=== PATIENT | female | born 2000 | race Caucasian/White ===

== ENCOUNTER 2019-10-31 08:57 | Day surgery (SDC) | payer OTHER ==
[~2019-10-31] VITALS: Ht 167.6 cm; Wt 65.8 kg
[2019-10-31] MEDS ORDERED: IRON325 M1 PO ×2 (09:20)
[2019-10-31] MEDS ORDERED: METFORMIN HCL500 MG PO ×2 (09:20)
--- NOTE | 2019-10-31 11:34 | NUR ---
10/31/19 1134 Sheets,Swati 1112 PT ARRIVED TO PACU ON 6L VIA MASK, VSS. PT REACTIVE TO TACTILE STIMULI. 1120 MD AT BEDSIDE AND O2 GLORIA REMOVED. PT RPEORTS PAIN 3/10 AND TOLERABLE. PT ASKING FOR WATER. 1130 PT SIPPING WATER AND PLAN OF CARE DISCUSSED. PT DENIES NAUSEA.
--- NOTE | 2019-10-31 11:46 | NUR ---
PATIENT BACK IN DAY SURGERY ROOM FROM PACU. PATIENT SLIGHTLY DROWSY. C/O PAIN 5/10. GIVEN ICE WATER AND PUDDING. WILL MEDICATE PATIENT ONCE SHE IS ABLE TO EAT A FEW BITES OF PUDDING. VS CHECKED. IV SITE WNL. SCDs ON. CALL LIGHT WITHIN REACH.
[2019-10-31] MEDS ORDERED: HYDROCODONE-ACE15 M3 PO ×2 (12:00)
--- NOTE | 2019-10-31 12:17 | NUR ---
PATIENT TOLERATED PUDDING AND WATER. MEDICATED FOR PAIN WITH 5 ML OF LORTAB ELIXIR. CALL LIGHT WITHIN REACH.
--- NOTE | 2019-10-31 13:59 | NUR ---
1335: PATIENT DRESSED AND STATES READY TO GO HOME. VS CHECKED BY STUDENT NURSE. IV DC'D WNL BY STUDENT NURSE. TIP INTACT. DRESSING APPLIED. DISCHARGE INSTRUCTIONS GIVEN TO PATIENT. 1345: PATIENT DISCHARGED TO HOME WITH MOTHER VIA WHEELCHAIR.
--- NOTE | 2019-11-07 15:59 | [place] ---
[facility] [address] [place], [place] [address] Signed DATE OF OPERATION: SURGEON: Dante Maravilla MD PREOPERATIVE DIAGNOSIS: Chronic tonsillitis. POSTOPERATIVE DIAGNOSIS: Chronic tonsillitis. PROCEDURE: Tonsillectomy. ANESTHESIA: General orotracheal; LARRY, Robby. PREOPERATIVE HISTORY: Kira is a 19-year-old young lady with chronic tonsillitis with multiple infections, recurrent, taken to the operating room for the above-mentioned procedures. OPERATIVE PROCEDURE AND FINDINGS: After informed consent, the patient was taken to the operating room, placed in supine position where general orotracheal anesthesia was induced. The patient and procedure were verified. The patient was repositioned. McIvor mouth gag placed into suspension. Headlight exam of the pharynx showed markedly hypertrophic 3+ cryptic tonsillithic tonsils. The left tonsil was grasped with a tenaculum, retracted medially, and removed from its fossa with mucosal sparing incisions with Coblation. Field was dry after the procedure. Same procedure on the right tonsil. Tonsils were sent to pathology. Reinspection of the tonsil fossa showed no bleeding points. Pharynx was suctioned clear of blood and secretions. Mouth gag was removed. The patient was awakened, extubated, transported to recovery room in good condition. No complications. BLOOD LOSS: Minimal. SPECIMEN: To pathology. DRAINS: No drains. Electronically Signed By: DANTE MARAVILLA MD 11/07/19 1559 PATIENT NAME: KIRA SILVA OPERATIVE REPORT DATE OF : [birth year] REPORT #: [id number] PHYSICIAN: DANTE MARAVILLA MD PCP: BENTLEY MARTINES DO REPORT IS CONFIDENTIAL AND NOT TO BE RELEASED WITHOUT AUTHORIZATION [address] [place], [place] [address] Signed Dante Maravilla MD /KEYANA /[id number] Copies: ~ Electronically Signed By: DANTE MARAVILLA MD 11/07/19 1559 PATIENT NAME: KIRA SILVA OPERATIVE REPORT DATE OF : [birth year] REPORT #: [id number] PHYSICIAN: DANTE MARAVILLA MD PCP: BENTLEY MARTINES DO REPORT IS CONFIDENTIAL AND NOT TO BE RELEASED WITHOUT AUTHORIZATION
== END 2019-10-31 13:45 | disposition home or self-care (01) ==
LOC: OPS 08:57 → DS 09:07 → OPS 10:10
PROVIDERS: Otolaryngology
PROC: 0C5PXZZ Destruction of Tonsils, External Approach (ICD-10-PCS; principal; 2019-10-31 10:10)
DX: J35.01 Chronic tonsillitis (principal); Z79.84 Long term (current) use of oral hypoglycemic drugs; Z79.899 Other long term (current) drug therapy
CPT/HCPCS: 00170; 84703; J1100; J1885; J2001; J2250; J2405; J2704; J3010; J7030; J7121

== ENCOUNTER 2019-11-05 12:39 | Emergency (ER) | payer OTHER ==
[~2019-11-05] VITALS: Ht 167.6 cm; Wt 61.2 kg
--- OUTSIDE RECORDS SUMMARY | ~2019-11-05 | XMS | Encounter Summary ---
Demographics + + + | Address | [facility] | | | [address] | | | [place] [address] | + + + | Home Phone | | + + + | Preferred Language | Unknown | + + + | Marital Status | Single | + + + | Bahai Affiliation | Unknown | + + + | Race | Unknown | + + + | Ethnic Group | Unknown | + + + Author + + + | Author | [facility] | | | and [place] | + + + | Organization | [facility] | | | and [place] | + + + | Address | Unknown | + + + | Phone | Unavailable | + + + Support + + +---------+ + | Name | Relationship | Address | Phone | + + +---------+ + | Saida Chester | ECON | Unknown | | + + +---------+ + Care Team Providers + +------+ + | Care Tire And Tube Repairer Name | Role | Phone | + +------+ + | No, Physician | PCP | Unavailable | + +------+ + Reason for Visit + + + | Reason | Comments | + + + | Sore Throat | | + + + Encounter Details +--------+ + + + + | Date | Type | Department | Care Team | Description | +--------+ + + + + | 04/21/ | Emergency | [facility] | Humberto Hughes | Tonsillitis (Primary | | 2019 | | [facility] | [address] | Dx) | | | | C[facility] [address] | [address] | | | | | [address] [place], [place] | [place] [address] | | | | | [address] | [phone] | | | | | [phone] | | | +--------+ + + + + Social History + +-------+ +--------+------+ | Tobacco Use | Types | Packs/Day | Years | Date | | | | | Used | | + +-------+ +--------+------+ | Never Smoker | | | | | + +-------+ +--------+------+ + +---+---+---+ | Smokeless Tobacco: | | | | | Never Used | | | | + +---+---+---+ + + +---------+ + | Alcohol Use | Drinks/Week | oz/Week | Comments | + + +---------+ + | Never | | | | + + +---------+ + + + + + | Alcohol Habits | Answer | Date Recorded | + + + + | How often do you have a drink containing | Never | 04/18/2019 | | alcohol? | | | + + + + | How many drinks containing alcohol do you | Not asked | | | have on a typical day when you are | | | | drinking? | | | + + + + | How often do you have six or more drinks on | Not asked | | | one occasion? | | | + + + + + + + | Sex Assigned at | Date Recorded | | | | + + + | Not on file | | + + + + + + + | Job Start Date | Occupation | Industry | + + + + | Not on file | Not on file | Not on file | + + + + + + + + | Travel History | Travel Start | Travel End | + + + + + + | No recent travel history available. | + + documented as of this encounter Last Filed Vital Signs + + + + + | Vital Sign | Reading | Time Taken | Comments | + + + + + | Blood Pressure | 136/89 | 04/21/2019 12:22 PM | | | | | PDT | | + + + + + | Pulse | 78 | 04/21/2019 12:22 PM | | | | | PDT | | + + + + + | Temperature | 36.3 C (97.4 F) | 04/21/2019 12:22 PM | Oral | | | | PDT | | + + + + + | Respiratory Rate | 12 | 04/21/2019 12:22 PM | | | | | PDT | | + + + + + | Oxygen Saturation | 100% | 04/21/2019 8:19 AM | RA | | | | PDT | | + + + + + | Inhaled Oxygen | - | - | | | Concentration | | | | + + + + + | Weight | 63.5 kg (140 lb) | 04/21/2019 8:19 AM | | | | | PDT | | + + + + + | Height | 170.2 cm (5' 7") | 04/21/2019 8:19 AM | | | | | PDT | | + + + + + | Body Mass Index | 21.93 | 04/21/2019 8:19 AM | | | | | PDT | | + + + + + documented in this encounter Discharge Instructions Humberto Garcia DO - 04/21/2019Follow-up with your primary provider. AttachmentsThe following attachments cannot be sent through Care Everywhere.Pharyngitis, St rep (Presumed) (Guinean)documented in this encounter Medications at Time of Discharge + + + +---------+ + + | Medication | Sig | Dispensed | Refills | Start | End Date | | | | | | Date | | + + + +---------+ + + | metFORMIN | Take 500 mg by mouth | | 0 | 04/01/20 | | | (GLUCOPHAGE) 500 mg | 3 times daily. | | | 19 | | | tablet | | | | | | + + + +---------+ + + | methylPREDNISolone | Follow package | 21 | 0 | 04/18/20 | | | (MEDROL DOSEPAK) 4 | directions. | tablet | | 19 | | | mg | | | | | | | tabletIndications: | | | | | | | Exudative | | | | | | | pharyngitis | | | | | | + + + +---------+ + + | | Take 1 tablet by | 20 | 0 | 04/21/20 | | | amoxicillin-clavulan | mouth 2 times daily | tablet | | 19 | 9 | | ate (AUGMENTIN) | for 10 days. | | | | | | 875-125 mg per | | | | | | | tablet | | | | | | + + + +---------+ + + documented as of this encounter Plan of Treatment Not on filedocumented as of this encounter Procedures + +--------+ + + + | Procedure Name | Priori | Date/Time | Associated Diagnosis | Comments | | | ty | | | | + +--------+ + + + | CT SOFT TISSUE NECK | STAT | 04/21/2019 | | Results for this | | W CONTRAST | | 9:42 AM | | procedure are in the | | | | PDT | | results section. | + +--------+ + + + | MONONUCLEOSIS SCREEN | Routin | 04/21/2019 | | Results for this | | | e | 9:03 AM | | procedure are in the | | | | PDT | | results section. | + +--------+ + + + | CBC WITH | STAT | 04/21/2019 | | Results for this | | DIFFERENTIAL | | 9:03 AM | | procedure are in the | | | | PDT | | results section. | + +--------+ + + + | , SERUM, | STAT | 04/21/2019 | | Results for this | | QUAL | | 9:03 AM | | procedure are in the | | | | PDT | | results section. | + +--------+ + + + | COMPREHENSIVE | STAT | 04/21/2019 | | Results for this | | METABOLIC PANEL | | 9:03 AM | | procedure are in the | | | | PDT | | results section. | + +--------+ + + + documented in this encounter Results CT Soft Tissue Neck w Contrast (04/21/2019 9:42 AM PDT) + + | Specimen | + + | | + + + + + | Impressions | Performed At | + + + | Prominent palatine tonsils right greater than left which are | [facility] | | suggestive of infectious and/or inflammatory process. No drainable | | | abscess. No prevertebral soft tissue swelling/edema. Dictated | | | by: Robby Agrawal Electronically Signed by: Robby Agrawal on | | | 04/21/2019 10:15 AM | | + + + + + + | Narrative | Performed At | + + + | EXAMINATION: CT SOFT TISSUE NECK W CONTRAST HISTORY: throat | [facility] | | pain COMPARISON STUDY: None TECHNIQUE: 5 mm axial slices | | | were acquired through the neck with contrast. There was no post | | | contrast reaction DOSE REPORT: CTDIvol: 10.0 mGy. DLP: 264 | | | mGy-cm. Automated exposure control was utilized. FINDINGS: Soft | | | tissue swelling of the palatine tonsils right greater than left is | | | noted. Edema is present adjacent to the right palatine tonsil | | | without drainable abscess. No prevertebral soft tissue | | | swelling/edema. Mildly prominent cervical lymph nodes are noted | | | symmetrically without focal adenopathy and/or abnormal attenuation | | | lymph nodes. The parotid, submandibular, and thyroid glands are | | | unremarkable. The visualized lung apices are clear. The carotid | | | and vertebral arteries unremarkable. The visualized intracranial | | | contents demonstrate acute finding. The mastoid air cells and middle | | | ears are clear. The paranasal sinuses are clear. Orbital | | | contents unremarkable. | | + + + + + | Procedure Note | + + | Ruel, Rad Results In - 04/21/2019 10:19 AM PDT EXAMINATION:CT SOFT TISSUE NECK W | | CONTRASTHISTORY:throat painCOMPARISON STUDY:NoneTECHNIQUE:5 mm axial slices were | | acquired through the neck with contrast. There was no post contrast reactionDOSE | | REPORT:CTDIvol: 10.0 mGy. DLP: 264 mGy-cm. Automated exposure control was | | utilized.FINDINGS:Soft tissue swelling of the palatine tonsils right greater than left | | is noted. Edema is present adjacent to the right palatine tonsil without drainable | | abscess. No prevertebral soft tissue swelling/edema.Mildly prominent cervical lymph | | nodes are noted symmetrically without focal adenopathy and/or abnormal attenuation lymph | | nodes.The parotid, submandibular, and thyroid glands are unremarkable. The visualized | | lung apices are clear. The carotid and vertebral arteries unremarkable. The visualized | | intracranial contents demonstrate acute finding. The mastoid air cells and middle ears | | are clear. The paranasal sinuses are clear. Orbital contents unremarkable.IMPRESSION: | | Prominent palatine tonsils right greater than left which are suggestive of infectious | | and/or inflammatory process. No drainable abscess.No prevertebral soft tissue | | swelling/edema.Dictated by: Robby AgrawalElectronically Signed by: Robby Agrawal on | | 04/21/2019 10:15 AM | |Soft tissue swelling of the palatine tonsils right greater than left is noted. Edema is pr esent adjacent to the right palatine tonsil without drainable abscess. No prevertebral soft tissue swelling/edema. | | | |Mildly prominent cervical lymph nodes are noted symmetrically without focal adenopathy and/ or abnormal attenuation lymph nodes. | | | |The parotid, submandibular, and thyroid glands are unremarkable. The visualized lung apice s are clear. The carotid and vertebral arteries unremarkable. The visualized intracranial contents demonstrate acute | |finding. The mastoid air cells and middle | |ears are clear. The paranasal sinuses are clear. Orbital contents unremarkable. | | | |IMPRESSION: | |Prominent palatine tonsils right greater than left which are suggestive of infectious and/o r inflammatory process. No drainable abscess. | | | |No prevertebral soft tissue swelling/edema. | | | |Dictated by: Robby Agrawal | | | | | + + + +---------+ + + | Performing | Address | City/State/Zipcode | Phone Number | | Organization | | | | + +---------+ + + | [facility] | | | | + +---------+ + + , Serum, Qual (04/21/2019 9:03 AM PDT) + + + + + + | Component | Value | Ref Range | Performed | Pathologist | | | | | At | Signature | + + + + + + | hCG Screen, | Negative | Negative | [facility] | | | Serum | | | [facility] | | | | | | [facility] | | + + + + + + + + | Specimen | + + | Blood | + + + + + + + | Performing | Address | City/State/Zipcode | Phone Number | | Organization | | | | + + + + + | [facility] | [address] | [place] | [phone] | | [facility] | | [address] | | + + + + + Mononucleosis Screen (04/21/2019 9:03 AM PDT) + + + + + + | Component | Value | Ref Range | Performed | Pathologist | | | | | At | Signature | + + + + + + | [place] Screen | Negative | Negative | [facility] | | | | | | [facility] | [facility] | | | | | | [facility] | | + + + + + + + + | Specimen | + + | Blood | + + + + + + + | Performing | Address | City/State/Zipcode | Phone Number | | Organization | | | | + + + + + | [facility] | [address] | [place] | [phone] | | [facility] | | [address] | | + + + + + Comprehensive Metabolic Panel (04/21/2019 9:03 AM PDT) + + + + + + | Component | Value | Ref Range | Performed | Pathologist | | | | | At | Signature | + + + + + + | Na | 143 | 132 - 143 | [facility] | | | | | mmol/L | [facility] | | | | | | [facility] | | + + + + + + | K | 3.2 (L) | 3.3 - 4.9 | [facility] | | | | | mmol/L | [facility] | | | | | | [facility] | | + + + + + + | Cl | 107 | 95 - 108 mmol/L | [facility] | | | | | | [facility] | | | | | | [facility] | | + + + + + + | CO2 | 27 | 23 - 34 mmol/L | [facility] | | | | | | [facility] | | | | | | [facility] | | + + + + + + | Anion Gap | 9 | 7 - 16 mmol/L | [facility] | | | | | | [facility] | | [facility] | | | [facility] | | + + + + + + | Glucose | 85 | 70 - 110 mg/dL | [facility] | | | | | | [facility] | | | | | | [facility] | | + + + + + + | BUN | 7 | 5 - 26 mg/dL | [facility] | | | | | | [facility] | | | | | | [facility] | | + + + + + + | Creatinine | 0.65 | 0.60 - 1.30 | [facility] | | | | | mg/dL | [facility] | | | | | | [facility] | | + + + + + + | eGFR if not | >60Comment: GLOMERULAR | >=60 | [facility] | | | | FILTRATION | mL/min/1.73m2 | [facility] | | | [facility] | RATE,ESTIMATED | | [facility] | | | | mL/min/1.75a2Vdgs than | | LABORATORY | | | | 60 Chronic kidney | | | | | | disease,if found over a | | | | | | 3-month period.Less than | | | | | | 15 Kidney failureFor | | | | | | | | | | | | Americans,multiply the | | | | | | calculated GFR by 1.21. | | | | | | | | | | + + + + + + | Calcium | 8.5 | 8.3 - 10.0 | [facility] | | | | | mg/dL | [facility] | | | | | | [facility] | | + + + + + + | Albumin | 3.2 | 3.0 - 4.5 g/dL | [facility] | | | | | | [facility] | | | | | | [facility] | | + + + + + + | Bilirubin | 0.2 | 0.0 - 1.2 mg/dL | [facility] | | | Total | | | [facility] | | | | | | [facility] | | + + + + + + | Total | 7.2 | 6.6 - 8.5 g/dL | [facility] | | | Protein | | | [facility] | | | | | | [facility] | | + + + + + + | AST | 16 | 0 - 38 U/L | [facility] | | | | | | [facility] | | | | | | [facility] | | + + + + + + | ALT | 16 | 14 - 59 U/L | [facility] | | | | | | [facility] | | | | | | [facility] | | + + + + + + | Alkaline | 69 | 46 - 116 U/L | [facility] | | | Phosphatase | | | [facility] | | | | | | [facility] | | + + + + + + | Globulin | 4.0 | 2.4 - 4.5 g/dL | [facility] | | | | | | [facility] | | | | | | [facility] | | + + + + + + | Albumin/Bibi | 0.8 | 0.8 - 2.0 | [facility] | | | bulin Ratio | | | [facility] | | | | | | [facility] | | + + + + + + | BUN/Creatin | 10.8 | 7.0 - 24.0 | [facility] | | | ine Ratio | | | [facility] | | | | | | [facility] | | + + + + + + + + | Specimen | + + | Blood | + + + + + + + | Performing | Address | City/State/Zipcode | Phone Number | | Organization | | | | + + + + + | [facility] | [address] | [place] | [phone] | | [facility] | | [address] | | + + + + + CBC with Differential (04/21/2019 9:03 AM PDT) + + + + + + | Component | Value | Ref Range | Performed | Pathologist | | | | | At | Signature | + + + + + + | WBC | 13.0 (H) | 4.3 - 10.4 K/uL | [facility] | | | | | | [facility] | | | | | | [facility] | | + + + + + + | RBC | 4.05 (L) | 4.12 - 5.30 | [facility] | | | | | M/uL | [facility] | | | | | | [facility] | | + + + + + + | Hemoglobin | 10.4 (L) | 12.4 - 15.7 | [facility] | | | | | g/dL | [facility] | | | | | | [facility] | | + + + + + + | Hematocrit | 32.3 (L) | 37.7 - 47.0 % | [facility] | | | | | | [facility] | | | | | | [facility] | | + + + + + + | MCV | 79.8 (L) | 82.0 - 97.0 fL | [facility] | | | | | | [facility] | | | | | | [facility] | | + + + + + + | MCH | 25.7 (L) | 27.1 - 32.3 pg | [facility] | | | | | | [facility] | | | | | | [facility] | | + + + + + + | MCHC | 32.2 | 32.0 - 36.9 | [facility] | | | | | g/dL | [facility] | | | | | | [facility] | | + + + + + + | RDW-CV | 14.2 | 0.0 - 17.0 % | [facility] | | | | | | [facility] | | | | | | [facility] | | + + + + + + | Platelet | 382 | 150 - 450 K/uL | [facility] | | | Count | | | [facility] | | | | | | [facility] | | + + + + + + | MPV | 10.1 | 9.4 - 12.3 fL | [facility] | | | | | | [facility] | | | | | | [facility] | | + + + + + + | % | 70.3 | 42.0 - 76.0 % | [facility] | | | Neutrophils | | | [facility] | | | | | | [facility] | | + + + + + + | % | 19.4 (L) | 20.0 - 40.0 % | [facility] | | | Lymphocytes | | | [facility] | | | | | | [facility] | | + + + + + + | % Monocytes | 9.4 | 3.0 - 13.0 % | [facility] | | | | | | [facility] | | | | | | [facility] | | + + + + + + | % | 0.2 | 0.0 - 7.0 % | [facility] | | | Eosinophils | | | [facility] | | | | | | [facility] | | + + + + + + | % Basophils | 0.4 | 0.0 - 2.0 % | [facility] | | | | | | [facility] | | | | | | [facility] | | + + + + + + | % Immature | 0.3 | 0.0 - 0.5 % | [facility] | | | Granulocyte | | | [facility] | | | s | | | [facility] | | | | | | [facility] | | + + + + + + | Absolute | 9.11 (H) | 2.50 - 8.50 | [facility] | | | Neutrophils | | K/uL | [facility] | | | | | | [facility] | | + + + + + + | Absolute | 2.52 | 1.00 - 3.80 | [facility] | | | Lymphocytes | | K/uL | [facility] | | | | | | [facility] | | + + + + + + | Absolute | 1.22 (H) | 0.00 - 0.80 | [facility] | | | Monocytes | | K/uL | [facility] | | | | | | [facility] | | + + + + + + | Absolute | 0.02 | 0.00 - 0.70 | [facility] | | | Eosinophils | | K/uL | [facility] | | | | | | [facility] | | + + + + + + | Absolute | 0.05 | 0.00 - 0.20 | [facility] | | | Basophils | | K/uL | [facility] | | | | | | [facility] | | + + + + + + | Absolute | 0.04 | 0.00 - 0.15 | [facility] | | | Immature | | K/uL | [facility] | | | Granulocyte | | | [facility]OS[facility]ITAL | | | s | | | LAB[facility]ATORY | | + + + + + + | % nRBC | 0 | <=0 per 100 | [facility] | | | | | WBCs | [facility] | | | | | | [facility] | | + + + + + + | Absolute | 0.00 | 0.00 - 0.01 | [facility] | | | nRBC | | K/uL | [facility] | | | | | | [facility] | | + + + + + + + + | Specimen | + + | Blood | + + + + + + + | Performing | Address | City/State/Zipcode | Phone Number | | Organization | | | | + + + + + | [facility] | [address] | [place] | [phone] | | [facility] | | [address] | | + + + + + documented in this encounter Visit Diagnoses + + | Diagnosis | + + | Tonsillitis - Primary Acute tonsillitis | + + documented in this encounter Administered Medications + +---------+ +------+-------+------+ | Medication Order | MAR | Action | Dose | Rate | Site | | | Action | Date | | | | + +---------+ +------+-------+------+ | ampicillin-sulbactam (UNASYN) 3 | New Bag | 04/21/20 | 3 g | 200 | | | g in sodium chloride 0.9% 100 mL | | 19 10:01 | | mL/hr | | | IVPB 3 g, Intravenous, | | AM PDT | | | | | Administer over 30 Minutes, ONCE, | | | | | | | 04/21/19 at 1000, For 1 | | | | | | | dose, Activate system and mix | | | | | | | before use., Indications: Otitis | | | | | | | Media, Tonsillitis | | | | | | + +---------+ +------+-------+------+ +---+---+ | | | +---+---+ + +-------+ +-------+---+ + | dexamethasone (DECADRON) 10 | Given | 04/21/20 | 10 mg | | Left Arm | | mg/mL injection 10 mg 10 mg, | | 19 9:02 | | | | | Intravenous, ONCE, 04/21/19 | | AM PDT | | | | | at 0900, For 1 dose, When ordered | | | | | | | IV push: Dilute to 10-20 mL with | | | | | | | NS and give slowly over 1-2 | | | | | | | minutes., | | | | | | + +-------+ +-------+---+ + +---+---+ | | | +---+---+ + +-------+ +--------+---+---+ | iopamidol (ISOVUE-370) 370 | Given | 04/21/20 | 80 mLs | | | | mg/mL injection 80 mL 80 mL, | | 19 9:42 | | | | | Intravenous, ONCE PRN, Other, | | AM PDT | | | | | Starting 04/21/19 at 0942, | | | | | | | For 1 dose, Cat Scanner | | | | | | + +-------+ +--------+---+---+ +---+---+ | | | +---+---+ + +-------+ +-------+---+---+ | ketorolac (TORADOL) 30 mg/mL | Given | 04/21/20 | 30 mg | | | | injection Starting 04/21/19 | | 19 10:01 | | | | | at 0958, For 1 dose, JOSETTE, | | AM PDT | | | | | CHECO Partida: zay sutton, | | | | | | + +-------+ +-------+---+---+ +---+---+ | | | +---+---+ + +---------+ +--------+-------+---+ | lactated ringers (LR) bolus | New Bag | 04/21/20 | 1,000 | 1000 | | | 1,000 mL 1,000 mL, Intravenous, | | 19 10:45 | mLs | mL/hr | | | Administer over 1 Hours, ONCE, | | AM PDT | | | | | 04/21/19 at 1045, For 1 dose | | | | | | + +---------+ +--------+-------+---+ +---+---+ | | | +---+---+ documented in this encounter
--- OUTSIDE RECORDS SUMMARY | ~2019-11-05 | XMS | Encounter Summary ---
Demographics + + + | Address | [facility] | | | [address] | | | [place] [address] | + + + | Home Phone | | + + + | Preferred Language | Unknown | + + + | Marital Status | Single | + + + | Worship Affiliation | Unknown | + + + | Race | Unknown | + + + | Ethnic Group | Unknown | + + + Author + + + | Author | [facility] | | | and [place] | + + + | Organization | [facility] | | | and [place] | + + + | Address | Unknown | + + + | Phone | Unavailable | + + + Support + + +---------+ + | Name | Relationship | Address | Phone | + + +---------+ + | Saida Briggs | ECON | Unknown | | + + +---------+ + Care Team Providers + +------+ + | Care Brine Tank Separator Operator Name | Role | Phone | + +------+ + | No, Physician | PCP | Unavailable | + +------+ + Reason for Visit + + + | Reason | Comments | + + + | Pharyngitis | | + + + Encounter Details +--------+---------+ + + + | Date | Type | Department | Care Team | Description | +--------+---------+ + + + | 04/21/ | Office | [facility] | Dolly Resendez | Peritonsillar | | 2019 | Visit | [facility] | [address] | abscess (Primary | | | | [facility] [address] | [address] [place] | Dx); Pharyngitis, | | | | [address] [place], | [place] [address] | unspecified etiology | | | | [place] [address] | [phone] | | | | | [phone] | | | +--------+---------+ + + + Social History + +-------+ [...] + + + | Blood Pressure | 132/82 | 04/21/2019 7:31 AM | left arm medium cuff | | | | PDT | auto | + + + + + | Pulse | 88 | 04/21/2019 7:31 AM | reg | | | | PDT | | + + + + + | Temperature | 37.7 C (99.8 F) | 04/21/2019 7:31 AM | | | | | PDT | | + + + + + | Respiratory Rate | 18 | 04/21/2019 7:31 AM | | | | | PDT | | + + + + + | Oxygen Saturation | 100% | 04/21/2019 7:31 AM | ra | | | | PDT | | + + + + + | Inhaled Oxygen | - | - | | | Concentration | | | | + + + + + | Weight | 63.9 kg (140 lb 12.8 | 04/21/2019 7:31 AM | | | | oz) | PDT | | + + + + + | Height | - | - | | + + + + + | Body Mass Index | - | - | | + + + + + documented in this encounter Progress Dolly Montiel, - 04/21/2019 7:30 AM PDT Patient ID: Kira Baig is a 18 y.o. year old female Chief Complaint: Chief Complaint Patient presents with Pharyngitis Assessment and Plan: 1. Peritonsillar abscess 2. Pharyngitis, unspecified etiology POCT Rapid Strep A Screen POCT Influenza A/B Culture, Strep A, Throat She had a negative repeat rapid strep test and a negative flu swab today. Review of her vi sit from earlier this week showed a very mildly elevated white blood cell count. Her speech is somewhat muffled but she is not drooling and there is no airway compromise. She does abad ve a large cystic structure pushing the uvula to the right. This appears clinically to be a peritonsillar abscess and she will need CT with contrast.I called and discussed the case [facility] Gauthier and he recommended she go up to the emergency room so that she can get a CT and an IV established. Nurse called report to the ER and patient was told to go directly [facility]. Subjective: HPI: Patient presents to the [facility] for sore throat. Last week she developed a sore throat and noticed that her tonsils were swollen and had whi te spots. She was evaluated in the [facility] on 04/18/19 for a sore throat and treated with a Medr ol dosepak for tonsillar hypertrophy. Mononucleosis screening and strep culture were negativ e. Today she reports that her throat pain is worse and she feels like her throat is more swo llen. She can still see exudate on her tonsils. She has been experiencing intermittent low g rade fevers. She denies difficulty breathing. Patient's medications, allergies, past medical, surgical, social and family histories were obtained and reviewed as appropriate. Review of Systems Constitutional: Positive for fever. HENT: Positive for sore throat and trouble swallowing. Psychiatric/Behavioral: Negative. Objective: Vitals: BP 132/82 Comment: left arm medium cuff auto | Pulse 88 Comment: reg | Temp 37.7 C (99.8 F) (Temporal) | Resp 18 | Wt 63.9 kg (140 lb 12.8 oz) | SpO2 100% Comment: ra Physical Exam Constitutional: She is oriented to person, place, and time. She appears well-developed and well-nourished. HENT: Head: Normocephalic and atraumatic. Right Ear: Tympanic membrane and ear canal normal. Left Ear: Tympanic membrane and ear canal normal. Nose: Nose normal. Mouth/Throat: Posterior oropharyngeal edema, posterior oropharyngeal erythema and tonsillar abscesses present. Examination of the posterior pharynx revealed a large fluid-filled sac on the left tonsilla r pillar deviating the uvula to the right. Speech is somewhat muffled though no airway comp romise noted on exam Eyes: Pupils are equal, round, and reactive to light. Neurological: She is alert and oriented to person, place, and time. Skin: Skin is warm and dry. Psychiatric: She has a normal mood and affect. Entered by Kira Thorne CNA 2, [facility], acting as scribe for Dolly Resendez DO. The documentation recorded by the scribe accurately reflects the service I personally perfo rmed and the decisions made by me. Electronically signed by: Dolly Resendez DO 04/21/2019 8:20 Note: Part of this report was transcribed using voice recognition software. Every effort wa s made to ensure accuracy. However, inadvertent computerized credit card clerk errors may be pre sent. documented in this encounter Plan of Treatment Not on filedocumented as of this encounter Procedures + +--------+ + + + | Procedure Name | Priori | Date/Time | Associated Diagnosis | Comments | | | ty | | | | + +--------+ + + + | POCT INFLUENZA A/B | Routin | 04/26/2019 | Pharyngitis, | Results for this | | | e | 7:19 AM | unspecified etiology | procedure are in the | | | | PDT | | results section. | + +--------+ + + + | POCT RAPID STREP A | Routin | 04/21/2019 | Pharyngitis, | Results for this | | SCREEN | e | 7:49 AM | unspecified etiology | procedure are in the | | | | PDT | | results section. | + +--------+ + + + | CULTURE, STREP A, | Routin | 04/21/2019 | Pharyngitis, | Results for this | | THROAT | e | 7:49 AM | unspecified etiology | procedure are in the | | | | PDT | | results section. | + +--------+ + + + documented in this encounter Results POCT Influenza A/B (04/26/2019 7:19 AM PDT) + + + + + + | Component | Value | Ref Range | Performed | Pathologist | | | | | At | Signature | + + + + + + | Rapid | Negative | Negative | | | | Influenza A | | | | | | Ag | | | | | + + + + + + | Rapid | Negative | Negative | | | | Influenza B | | | | | | Ag | | | | | + + + + + + | Internal QC | Acceptable | Acceptable | | | + + + + + + | Lot Number | | | | | + + + + + + | Expiration | | | | | | Date | | | | | + + + + + + + + | Specimen | + + | | + + Culture, Strep A, Throat (04/21/2019 7:49 AM PDT) + + + + + + | Component | Value | Ref Range | Performed | Pathologist | | | | | At | Signature | + + + + + + | Culture | No Group A Streptococcus | | [facility] | | | | isolated | | [facility] | | | | | | [facility] | | + + + + + + + + | Specimen | + + | Tissue - Specimen | | from throat | | (specimen) | + + + + + + + | Performing | Address | City/State/Zipcode | Phone Number | | Organization | | | | + + + + + | [facility] | [address] | [place] | [phone] | | [facility] | | [address] | | + + + + + POCT Rapid Strep A Screen (04/21/2019 7:49 AM PDT) + + + + + + | Component | Value | Ref Range | Performed | Pathologist | | | | | At | Signature | + + + + + + | Rapid Strep | Negative | Negative | | | | A Screen | | | | | + + + + + + | Internal QC | Acceptable | Acceptable | | | + + + + + + | CULTURE | | | | | | SENT TO LAB | | | | | + + + + + + | Lot Number | | | | | + + + + + + | Expiration | | | | | | Date | | | | | + + + + + + + + | Specimen | + + | Body Fluid | + + documented in this encounter Visit Diagnoses + + | Diagnosis | + + | Peritonsillar abscess - Primary | + + | Pharyngitis, unspecified etiology | + + documented in this encounter"
--- OUTSIDE RECORDS SUMMARY | ~2019-11-05 | XMS | Encounter Summary ---
Demographics + + + | Address | [facility] | | | [address] | | | [place] [address] | + + + | Home Phone | | + + + | Preferred Language | Unknown | + + + | Marital Status | Single | + + + | Jew Affiliation | Unknown | + + + | Race | Unknown | + + + | Ethnic Group | Unknown | + + + Author + + + | Author | [facility] | | | and [place] | + + + | Organization | [facility] | | [...] Team Providers + +------+ + | Care Boat Hand Name | Role | Phone | + +------+ + | No, Physician | PCP | Unavailable | + +------+ + Reason for Visit + + + | Reason | Comments | + + + | Lab Results | | + + + Encounter Details +--------+ + + + + | Date | Type | Department | Care Team | Description | +--------+ + + + + | 04/21/ | Telephone | [facility] | Dolly Resendez | Lab Results | | 2018 | | [facility] | [address] | | | | | [facility] [address] | [address] [place] | | | | | [address] [place], | [place] [address] | | | | | [place] [address] | [phone] | | | | | [phone] | | | +--------+ + + + [...] Not on filedocumented as of this encounter Visit Diagnoses Not on filedocumented in this encounter"
--- OUTSIDE RECORDS SUMMARY | ~2019-11-05 | XMS | Encounter Summary ---
Demographics + + + | Address | [facility] | | | [address] | | | [place] [address] | + + + | Home Phone | | + + + | Preferred Language | Unknown | + + + | Marital Status | Single | + + + | Advent Affiliation | Unknown | + + + | Race | Unknown | + + + | Ethnic Group | Unknown | + + + Author + + + | Author | [facility] | | | and [place] | + + + | Organization | [facility] | | | [...] Team Providers + +------+ + | Care Health Services Rn Name | Role | Phone | + [...] Description | +--------+---------+ + + + | 04/18/ | Office | [facility] | ClaireSharon, | Exudative | | 2019 | Visit | 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 (Primary | | | | [facility] [address] | [address] | Dx); Sore throat; | | | | [address] [place], | [place] [address] | Fatigue, unspecified | | | | [place] [address] | [phone] | type | | | | [phone] | | | +--------+---------+ + + + [...] + + + | Blood Pressure | 136/74 | 04/18/2019 4:07 PM | | | | | PDT | | + + + + + | Pulse | 100 | 04/18/2019 4:07 PM | | | | | PDT | | + + + + + | Temperature | 37.2 C (98.9 F) | 04/18/2019 4:07 PM | | | | | PDT | | + + + + + | Respiratory Rate | 20 | 04/18/2019 4:07 PM | | | | | PDT | | + + + + + | Oxygen Saturation | 100% | 04/18/2019 4:07 PM | | | | | PDT | | + + + + + | Inhaled Oxygen | - | - | | | Concentration | | | | + + + + + | Weight | - | - | | + + + + + | Height | - | - | | + + + + + | Body Mass Index | - | - | | + + + + + documented in this encounter Patient Instructions Patient Instructions Sharon Rangel APRN-FNP - 04/18/2019 3:15 PM PDTPlan: Viral Phary ngitis -Your strep test today was negative, so antibiotics are most likely not needed since your s ymptoms are most likely caused by a viral infection (not bacterial). I will send for culture to verify and we will call results if they are positive. This takes about two days. - I have also ordered blood work to test for mono -Treatment is essentially supportive, including lots of rest, plenty of fluids, and good nu trition. -Pain can be managed with ibuprofen, tylenol, salt water gargles, chloraseptic spray, and/o r throat lozenges. Do not go to sleep using throat lozenges due to risk of choking. -Humidifier in bedroom. -Recheck if not well in 7-10 days, sooner if worsening, or you have fever >100.5 beyond the first 3 days of illness. -May try Traditional Medicinals Organic Lemon Echinacea Throat Coat tea for relief of sympt oms. documented in this encounter Progress Notes Sharon Rangel APRN-FNP - 04/18/2019 3:15 PM PDTFormatting of this note might be diffe rent from the original. Subjective: Patient ID: Kira Baig is a 18 y.o. female. Chief Complaint Patient presents with Pharyngitis Smoking history: Has never smoked Pharyngitis This is a new problem. Episode onset: one week ago. The problem has been gradually worsenin g. Neither side of throat is experiencing more pain than the other. There has been no fever. The pain is at a severity of 8/10. The pain is moderate. Associated symptoms include ear pa in (left), headaches (today), swollen glands and trouble swallowing (very painful). Pertinen t negatives include no congestion, coughing, drooling or plugged ear sensation. Associated s ymptoms comments: Energy has been a little low. She has had no exposure to strep or mono. Tr eatments tried: otc cold medication. The treatment provided no relief. No Known Allergies There are no active problems to display for this patient. Current Outpatient Medications on File Prior to Visit Medication Sig Dispense Refill metFORMIN (GLUCOPHAGE) 500 mg tablet Take 500 mg by mouth 3 times daily. No current facility-administered medications on file prior to visit. Objective: BP 136/74 | Pulse 100 | Temp 37.2 C (98.9 F) (Oral) | Resp 20 | SpO2 100% Physical Exam Constitutional: She appears well-developed and well-nourished. Appears to feel mildly unwell HENT: Right Ear: Hearing, tympanic membrane, external ear and ear canal normal. Left Ear: Hearing, tympanic membrane, external ear and ear canal normal. Nose: Nose normal. Mouth/Throat: Mucous membranes are normal. Oropharyngeal exudate and posterior oropharyngea l erythema (3+ tonsillar hypertrophy (almost touching)) present. Neck: Normal range of motion. Neck supple. Lymphadenopathy: She has cervical adenopathy (anterior). Recent Results (from the past 24 hour(s)) POCT Rapid Strep A Screen Result Value Ref Range Rapid Strep A Screen Negative Negative Internal QC Acceptable Acceptable CULTURE SENT TO LAB Lot Number Expiration Date None Assessment: 1. Exudative pharyngitis - Mononucleosis Screen; Future - CBC with Differential; Future - methylPREDNISolone (MEDROL DOSEPAK) 4 mg tablet; Follow package directions. Dispense: 21 tablet; Refill: 0 2. Sore throat - POCT Rapid Strep A Screen - Culture, Strep A, Throat; Future - Culture, Strep A, Throat 3. Fatigue, unspecified type - Mononucleosis Screen; Future - CBC with Differential; Future Plan: Exudative pharyngitis with fatigue; negative rapid strep; will send for culture and treat i f indicated Labs to rule out mono Medrol dose pack for tonsillar hypertrophy Supportive care Return if symptoms worsen or fail to improve, for with pcp. Electronically signed by: BENOIT [id number] Note: Part of this report was transcribed using voice recognition software. Every effort wa s made to ensure accuracy. However, inadvertent computerized surgery consultant errors may be pre sent. documente d in this encounter Plan of Treatment Not on filedocumented as of this encounter Procedures + +--------+ + + + | Procedure Name | Priori | Date/Time | Associated Diagnosis | Comments | | | ty | | | | + +--------+ + + + | POCT RAPID STREP A | Routin | 04/18/2019 | Sore throat | Results for this | | SCREEN | e | 4:26 PM | | procedure are in the | | | | PDT | | results section. | + +--------+ + + + | CEDRICK PRESCOTT A, | Routin | 04/18/2019 | Sore throat | Results for this | | THROAT | e | 4:26 PM | | procedure are in the | | | | PDT | | results section. | + +--------+ + + + documented in this encounter Results CBC with Differential (04/18/2019 4:42 PM PDT) + + + + + + | Component | Value | Ref Range | Performed | Pathologist | | | | | At | Signature | + + + + + + | WBC | 10.8 (H) | 4.3 - 10.4 K/uL | [facility] | | | | | | [facility] | | | | | [facility] | | + + + + + + | RBC | 4.64 | 4.12 - 5.30 | [place] | | | | | M/uL | [facility] | | | | | | [facility] | | + + + + + + | Hemoglobin | 11.9 (L) | 12.4 - 15.7 | [facility] | | | | | g/dL | [facility] | | | | | | [facility] | | + + + + + + | Hematocrit | 37.5 (L) | 37.7 - 47.0 % | [place] | | | | | | [facility] | | | | | | [facility] | | + + + + + + | MCV | 80.8 (L) | 82.0 - 97.0 fL | [facility] | | | | | | [facility] | | | | | | [facility] | | + + + + + + | MCH | 25.6 (L) | 27.1 - 32.3 pg | [place] | | | | | | [facility] | | | | | | [facility] | | + + + + + + | MCHC | 31.7 (L) | 32.0 - 36.9 | [place] | | | | | g/dL | [facility] | | | | | | [facility] | | + + + + + + | RDW-CV | 14.5 | 0.0 - 17.0 % | [facility] | | | | | | [facility] | | | | | | [facility] | | + + + + + + | Platelet | 411 | 150 - 450 K/uL | [facility] | | | Count | | | [facility] | | | | | | [facility] | | + + + + + + | MPV | 10.5 | 9.4 - 12.3 fL | [place] | | | | | | [facility] | | | | | | [facility] | | + + + + + + | % | 60.3 | 42.0 - 76.0 % | [place] [...] + + + | % Monocytes | 6.5 | 3.0 - 13.0 % | [facility] | | | | | | [facility] | | | | | | [facility] | | + + + + + + | % | 13.0 (H) | 0.0 - 7.0 % | [place] | | | Eosinophils | | | [facility] | | | | | | [facility] | | + + + + + + | % Basophils | 0.6 | 0.0 - 2.0 % | [facility] | | | | | | [facility] | | | | | | [facility] | | + + + + + + | Absolute | 6.53 | 2.50 - 8.50 | [place] | | | Neutrophils | | K/uL | [facility] | | | | | | [facility] | | + + + + + + | Absolute | 2.10 | 1.00 - 3.80 | [place] | | | Lymphocytes | | K/uL | [facility] | | | | | | [facility] | | + + + + + + | Absolute | 0.70 | 0.00 - 0.80 | [place] | | | Monocytes | | K/uL | [facility] | | | | | | [facility] | | + + + + + + | Absolute | 1.41 (H) | 0.00 - 0.70 | [place] | | | Eosinophils | | K/uL | [facility] | | | | | | [facility] | | + + + + + + | Absolute | 0.06 | 0.00 - 0.20 | [facility] | [...] + + | [facility] | [address] | [place] | [phone] | | [facility] | | [address] | | + + + + + Mononucleosis Screen (04/18/2019 4:42 PM PDT) + + + + + + | Component | Value | Ref Range | Performed | Pathologist | | | | | At | Signature | + + + + + + | [place] Screen | Negative | Negative | [facility] [...] + + | [facility] | [address] | [place] | [phone] | | [facility] | | [address] | | + + + + + Culture, Strep A, Throat (04/18/2019 4:26 PM PDT) + + + + + + [...] + + | [facility] | [address] | [place], [place] | [phone] | | [facility] | | [address] | | + + + + + POCT Rapid Strep A Screen (04/18/2019 4:26 PM PDT) + + + + + + [...] + | Diagnosis | + + | Exudative pharyngitis - Primary | + + | Sore throat Acute pharyngitis | + + | Fatigue, unspecified type | + + documented in this encounter"
--- OUTSIDE RECORDS SUMMARY | ~2019-11-05 | XMS | Clinical Summary ---
Demographics + + + | Address | [facility] | | | [address] | | | [place] [address] | + + + | Home Phone | | + + + | Preferred Language | Unknown | + + + | Marital Status | Single | + + + | Tenriism Affiliation | Unknown | + + + | Race | Unknown | + + + | Ethnic Group | Unknown | + + + Author + + + | Author | [facility] | | | and [place] | + + + | Organization | [facility] | | | [...] Team Providers + +------+ + | Care Operations Director Name | Role | Phone | + +------+ + | Liam Dumont DO | PCP | | + +------+ + Allergies + + + + + + | Active Allergy | Reactions | Severity | Noted | Comments | | | | | Date | | + + + + + + | Nickel | Rash | Low | 02/24/20 | | | | | | 17 | | + + + + + + Medications + + + +---------+------+------+-------+ | Medication | Sig | Dispensed | Refills | Star | End | Statu | | | | | | t | Date | s | | | | | | Date | | | + + + +---------+------+------+-------+ | metFORMIN | Take 500 mg by mouth | | 0 | 10/0 | | Activ | | (GLUCOPHAGE) 500 mg | 3 times daily. | | | 5/20 | | e | | tablet | | | | 19 | | | + + + +---------+------+------+-------+ | methylPREDNISolone | Follow package | 21 | 0 | 10/2 | | Activ | | (MEDROL DOSEPAK) 4 | directions. | tablet | | 2/20 | | e | | mg | | | | 19 | | | | tabletIndications: | | | | | | | | Exudative | | | | | | | | pharyngitis | | | | | | | + + + +---------+------+------+-------+ | MAUREENUL 325 (65 | take 1 tablet by | | 0 | 05/30 | | Activ | | Fe) MG tablet | mouth twice a day | | | 0/20 | | e | | | | | | 19 | | | + + + +---------+------+------+-------+ Active Problems + + + | Problem | Noted Date | + + + | Polycystic ovarian syndrome | 02/24/2017 | + + + Immunizations + + + + | Name | Administration Dates | Next Due | + + + + | INFLUENZA PF | 07/11/2019 | | | QUAD(PED/ADOL/ADULT) | | | | ,PSKT or VIAL | | | + + + + Family History + + +------+ + | Medical History | Relation | Name | Comments | + + +------+ + | High blood pressure | Father | | | + + +------+ + + +------+--------+ + | Relation | Name | Status | Comments | + +------+--------+ + | Father | | | | + +------+--------+ + Social History + +-------+ +--------+------+ | [...] recent travel history available. | + + Last Filed Vital Signs + + + + + | Vital Sign | Reading | Time Taken | Comments | + + + + + | Blood Pressure | 106/64 | 07/11/2019 8:17 AM | | | | | PST | | + + + + + | Pulse | 90 | 07/11/2019 8:17 AM | | | | | PST | | + + + + + | Temperature | 36.9 C (98.4 F) | 07/11/2019 8:17 AM | | | | | PST | | + + + + + | Respiratory Rate | 18 | 07/11/2019 8:17 AM | | | | | PST | | + + + + + | Oxygen Saturation | 100% | 07/11/2019 8:17 AM | | | | | PST | | + + + + + | Inhaled Oxygen | - | - | | | Concentration | | | | + + + + + | Weight | 62.6 kg (138 lb) | 07/11/2019 8:17 AM | | | | | PST | | + + + + + | Height | 170.2 cm (5' 7") | 07/11/2019 8:17 AM | | | | | PST | | + + + + + | Body Mass Index | 21.61 | 07/11/2019 8:17 AM | | | | | PST | | + + + + + Plan of Treatment + + + + + | Health Maintenance | Due Date | Last Done | Comments | + + + + + | Well Child Check | | | | | | 2 | | | + + + + + | Cervical Cancer | | | | | Screening (Pap) | 0 | | | + + + + + | Vaccine: | | 01/27/2010, 08/28/2002, | | | Dtap/Tdap/Td (7 - | 0 | 08/31/2001, Additional history | | | Td) | | exists | | + + + + + | Vaccine: HPV | Completed | 02/11/2009, 10/11/2008, | | | | | 08/13/2008 | | + + + + + | Vaccine: Influenza | Completed | 07/11/2019, 04/08/2017, | | | | | 03/10/2016, Additional history | | | | | exists | | + + + + + Results Not on filefrom Last 3 Months Insurance +-------+--------+ +--------+ +---------+------+ | Payer | Benefi | Subscriber | Effect | Phone | Address | Type | | | t Plan | ID | sandra | | | | | | / | | Dates | | | | | | Group | | | | | | +-------+--------+ +--------+ +---------+------+ | CIGNA | CIGNA | [id number] | 07/05/19 | [phone] | | PPO | | | PPO | | 20-Pre | 1 | | | | | | | sent | | | | +-------+--------+ +--------+ +---------+------+ + +--------+ +--------+ + + | Guarantor Name | Accoun | Relation to | Date | Phone | Billing Address | | | t Type | Patient | of | | | | | | | | | | + +--------+ +--------+ + + | Kira Baig | Person | Self | [birth year] | [facility] | | Vivien | al/Fam | | 2000 | [phone] | [address] | | | cindy | | | 0 (Home) | [place], | | | | | | | [place] [address] | + +--------+ +--------+ + + Advance Directives + + + + + | Type | Date Recorded | Patient | Explanation | | | | 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
--- OUTSIDE RECORDS SUMMARY | ~2019-11-05 | XMS | Encounter Summary ---
Demographics + + + | Address | [facility] | | | [address] | | | [place] [address] | + + + | Home Phone | | + + + | Preferred Language | Unknown | + + + | Marital Status | Single | + + + | Quaker Affiliation | Unknown | + + + | Race | Unknown | + + + | Ethnic Group | Unknown | + + + Author + + + | Author | [facility] | | | and [place] | + + + | Organization | [facility] | | | and [...] Team Providers + +------+ + | Care Debt Recovery Officer Name | Role | Phone | + [...] Peritonsillar | | 2019 | Visit | [facility] | DO [address] | abscess (Primary | | | | [facility] [address] | [address] [place] | Dx); Pharyngitis, | | | | [address] [place], | [place] [address] | unspecified etiology | | | | [place] [address] | [phone] | | | | | [phone] | | | +--------+---------+ + + + [...] + documented in this encounter Progress Dolly Mnotiel, - 04/21/2019 7:30 AM PDT Patient ID: [...] with contrast.I called and discussed the case [facility] Dr. Gauthier and he recommended she go up to the emergency room so that she can get a CT and an IV established. Nurse called report to the ER and patient was told to go directly from [facility] ed to the emergency room. Subjective: HPI: Patient presents to the [facility] for sore throat. Last week she developed a sore throat and noticed that her tonsils were swollen and had whi te spots. She was evaluated in the [facility] on 04/18/19 for a sore throat and [...] affect. Entered by Kira Thorne CNA 2, [facility], acting as scribe for Dolly Resendez DO. The documentation recorded by the scribe accurately reflects the service I personally perfo rmed and the decisions made by me. Electronically signed by: Dolly Resendez DO 04/21/2019 8:20 Note: Part of this report was transcribed using voice recognition software. Every effort wa s made to ensure accuracy. However, inadvertent computerized mechanical manager errors may be pre sent. documented in [...] + + | [facility] | [address] | [place] | [phone] | | HOSPITAL LABORATORY | | [address] | | + + + + + [...]
--- OUTSIDE RECORDS SUMMARY | ~2019-11-05 | XMS | Encounter Summary ---
Demographics + + + | Address | [facility] | | | [address] | | | [place] [address] | + + + | Home Phone | | + + + | Preferred Language | Unknown | + + + | Marital Status | Single | + + + | Temple Affiliation | Unknown | + + + | Race | Unknown | + + + | Ethnic Group | Unknown | + + + Author + + + | Author | [facility] | | | and [place] | + + + | Organization | [facility] | | | and [...] Team Providers + +------+ + | Care Manager Scientific Name | Role | Phone | + +------+ + | Liam Dumont DO | PCP | | + +------+ + Reason for Visit +--------+ + | Reason | Comments | +--------+ + | Other | [facility] | +--------+ + Encounter Details +--------+ + + + + | Date | Type | Department | Care Team | Description | +--------+ + + + + | 06/12/ | Telephone | [place] [facility] | No, Physician p | Other ([facility]) | | 2019 | | [facility] | | | | | | [facility]ICAL [facility] [address] | | | | | | [address] [place], | | | | | | [place] [address] | | | | | | [phone] | | | +--------+ + + + [...]
--- OUTSIDE RECORDS SUMMARY | ~2019-11-05 | XMS | Encounter Summary ---
Demographics + + + | Address | [facility] | | | [address] | | | [place] [address] | + + + | Home Phone | | + + + | Preferred Language | Unknown | + + + | Marital Status | Single | + + + | Restorationism Affiliation | Unknown | + + + | Race | Unknown | + + + | Ethnic Group | Unknown | + + + Author + + + | Author | [facility] | | | and [place] | + + + | Organization | [facility] | | | and [...] Team Providers + +------+ + | Care Recreation Establishment Manager Name | Role | Phone | + [...] | | | [facility] [address] | [address] [place] | | | | | [address] [place], | [place] [address] | | | | | [place] [address] | [phone] | | | | | [phone] | | | +--------+ + + + [...]
--- OUTSIDE RECORDS SUMMARY | ~2019-11-05 | XMS | Encounter Summary ---
Demographics + + + | Address | [facility] | | | [address] | | | [place] [address] | + + + | Home Phone | | + + + | Preferred Language | Unknown | + + + | Marital Status | Single | + + + | Muslim Affiliation | Unknown | + + + | Race | Unknown | + + + | Ethnic Group | Unknown | + + + Author + + + | Author | [facility] | | | and [place] | + + + | Organization | [facility] | | | [...] Team Providers + +------+ + | Care Shrinking Machine Operator Name | Role | Phone | [...] Other ([facility]) | | 2019 | | [facility] | | | | | | MEDICAL CL[facility] [address] | | | | | | [address] [place], | | | | | | [place] [address] | | | | | | [phone] | | | +--------+ + + + [...]
--- OUTSIDE RECORDS SUMMARY | ~2019-11-05 | XMS | Clinical Summary ---
Demographics + + + | Address | [facility] | | | [address] | | | [place] [address] | + + + | Home Phone | | + + + | Preferred Language | Unknown | + + + | Marital Status | Single | + + + | Evangelical Affiliation | Unknown | + + + | Race | Unknown | + + + | Ethnic Group | Unknown | + + + Author + + + | Author | [facility] | | | and [place] | + + + | Organization | [facility] | | | and [...] Team Providers + +------+ + | Care Welt Sole Layer Name | Role | Phone | + [...] +--------+ +---------+------+ | CIG[employer] | CIGNA | [id number] | 07/05/19 | [phone] | | PPO | | | PPO [...] Person | Self | [birth year] | | [facility] | | Vivien | al/Fam | | 2000 | [phone] | Valerie Rodríguez | | | cindy | | | 0 (Home) | [place], | | | | | | | [place] [address] | + +--------+ +--------+ + + Advance Directives + + + + + | Type | Date Recorded | Patient | Explanation | | | | Er Medical Technician | | + + + + + | Power of | | | | | Online Merchant | | | | + + + + + | Advance | | | | | Directive | | | | + + + + +
--- OUTSIDE RECORDS SUMMARY | ~2019-11-05 | XMS | Encounter Summary ---
Demographics + + + | Address | [facility] | | | [address] | | | [place] [address] | + + + | Home Phone | | + + + | Preferred Language | Unknown | + + + | Marital Status | Single | + + + | Methodist Affiliation | Unknown | + + + | Race | Unknown | + + + | Ethnic Group | Unknown | + + + Author + + + | Author | [facility] | | | and [place] | + + + | Organization | [facility] | | [...] Team Providers + +------+ + | Care Fluorescent Lamp Replacer Name | Role | Phone | + +------+ + | Liam Dumont DO | PCP | | + +------+ + Reason for Visit + + + | Reason | Comments | + + + | Establish Care | | + + + | Pharyngitis | Ed 04/21 and 05/07 | + + + Encounter Details +--------+---------+ + + + | Date | Type | Department | Care Team | Description | +--------+---------+ + + + | 07/11/ | Office | [facility] | Liam Dumont | Tonsillar | | 2020 | Visit | [facility] | E, DO [address] | hypertrophy (Primary | | | | MEDICAL [facility] | [place], [place] | Dx); Need for | | | | [address] [place], | [address] | influenza | | | | [place] [address] | [phone] | vaccination | | | | [phone] | | | +--------+---------+ + + + [...] + + documented in this encounter Progress Notes Liam Dumont DO - 07/11/2019 8:20 AM PST Patient ID: Kira Baig is a 18 y.o. year old female Chief Complaint: Chief Complaint Patient presents with Establish Care Pharyngitis Ed 04/21 and 05/07 Assessment 1. Tonsillar hypertrophy 2. Need for influenza vaccination - Influenza *PF 3 yrs or >, Quadrivalent PSKT or Vial (Fluzone) [[id number]] Plan: -Continue contact with ENT. -Flu shot administered today. -FU PRN. Subjective: HPI: Patient presents to the clinic to establish care. The patient has been seen twice at the ER on 04/21 and 05/07 for acute pharyngitis. She had a CT of her neck performed which demonstrated bilateral phlegmon with no peritonsillar or r etropharyngeal abscess noted. She states that she had strep previously, and felt on 04/21 that she had strep symptoms. Th e ER gave her Augmentin prophylactically, which provided transient relief. She went to the E R in [place] while visiting her boyfriend for the recurrent symptoms. The ER gave her clinda mycin, which she reports had helped. She was swabbed for strep throat both instances, and pamela th cultures were negative. She currently reports still swollen tonsils, but she is in contac t with the ENT in [place]. She reports some trouble sleeping, but notes that it may be due to stress. 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 She is from [place]. Current Outpatient Medications Medication Sig Dispense Refill FEROSUL 325 (65 Fe) MG tablet take 1 tablet by mouth twice a day metFORMIN (GLUCOPHAGE) 500 mg tablet Take 500 mg by mouth 3 times daily. methylPREDNISolone (MEDROL DOSEPAK) 4 mg tablet Follow package directions. 21 tablet 0 No current facility-administered medications for this visit. Patient Active Problem List Diagnosis Polycystic ovarian syndrome Family History Problem Relation Age of Onset High blood pressure Father Past Surgical History: Procedure Laterality Date laproscopic cyst removal Social History Socioeconomic History Marital status: Single Spouse name: Not on file Number of children: Not on file Years of education: Not on file Highest education level: Not on file Occupational History Not on file Social Needs Financial resource strain: Not on file Food insecurity: Worry: Not on file Inability: Not on file Transportation needs: Medical: Not on file Non-medical: Not on file Tobacco Use Smoking status: Never Smoker Smokeless tobacco: Never Used Substance and Sexual Activity Alcohol use: Never Frequency: Never Drug use: Never Sexual activity: Yes control/protection: No Lifestyle Physical activity: Days per week: Not on file Minutes per session: Not on file Stress: Not on file Relationships Social connections: Talks on phone: Not on file Gets together: Not on file Attends jainism service: Not on file Active member of club or organization: Not on file Attends meetings of clubs or organizations: Not on file Relationship status: Not on file Intimate partner violence: Fear of current or ex partner: Not on file Emotionally abused: Not on file Physically abused: Not on file Forced sexual activity: Not on file Other Topics Concern Not on file Social History Narrative Not on file Allergies Allergen Reactions Nickel Rash Review of Systems HENT: Negative for congestion and sinus pain. Swollen tonsils Respiratory: Negative for cough and shortness of breath. Cardiovascular: Negative for chest pain and palpitations. Gastrointestinal: Negative for abdominal pain, constipation and diarrhea. Psychiatric/Behavioral: Positive for sleep disturbance. Objective: Vitals: BP 106/64 | Pulse 90 | Temp 36.9 C (98.4 F) (Oral) | Resp 18 | Ht 1.702 m (5' 7") | Wt 62.6 kg (138 lb) | SpO2 100% | BMI 21.61 kg/m Physical Exam Constitutional: She is oriented to person, place, and time. She appears well-developed and well-nourished. HENT: Head: Normocephalic and atraumatic. Right Ear: External ear normal. Left Ear: External ear normal. Nose: Nose normal. Right sinus exhibits no maxillary sinus tenderness and no frontal sinus tenderness. Left sinus exhibits no maxillary sinus tenderness and no frontal sinus tendernes s. Mouth/Throat: Oropharynx is clear and moist. No oropharyngeal exudate. Swollen tonsils: Touches the uvula on the right and almost touches the uvula on the left. Scattered anterior chain adenopathy on the right. No sinus pain or nasal congestion Eyes: Pupils are equal, round, and reactive to light. Conjunctivae and EOM are normal. Neck: Normal range of motion. Neck supple. No thyromegaly present. Cardiovascular: Normal rate, regular rhythm, normal heart sounds and intact distal pulses. Pulmonary/Chest: Effort normal and breath sounds normal. Abdominal: Soft. Bowel sounds are normal. Neurological: She is alert and oriented to person, place, and time. She has normal reflexes . Psychiatric: She has a normal mood and affect. Her behavior is normal. Judgment and thought content normal. This documentation prepared by Abigail Patterson certified medical transcriptionist. All aspects of this chart review ed for accuracy and content by Liam Dumont DO at the date and time of service. Electronically signed by: Dr. Liam Dumont DO 07/11/2019 8:39 AM documented in this encounter Plan of Treatment Not on filedocumented as of this encounter Visit Diagnoses + + | Diagnosis | + + | Tonsillar hypertrophy - Primary Hypertrophy of tonsils alone | + + | Need for influenza vaccination Need for prophylactic vaccination and inoculation | | against influenza | + + documented in this encounter
--- OUTSIDE RECORDS SUMMARY | ~2019-11-05 | XMS | Encounter Summary ---
Demographics + + + | Address | [facility] | | | [address] | | | [place] [address] | + + + | Home Phone | | + + + | Preferred Language | Unknown | + + + | Marital Status | Single | + + + | Zoroastrian Affiliation | Unknown | + + + | Race | Unknown | + + + | Ethnic Group | Unknown | + + + Author + + + | Author | [facility] | | | and [place] | + + + | Organization | [facility] | | | [...] Team Providers + +------+ + | Care Retail Business Development Manager Name | Role | Phone | [...] Tonsillar | | 2020 | Visit | [facility] | E, DO [address] | hypertrophy (Primary | | | | MEDICAL CLINIC [facility] | [place], [place] | Dx); Need for | | | | [address] [place], | [address] | influenza | | | | [place] [address] | [phone] | vaccination | | | | [phone] | | | +--------+---------+ + + + [...] or >, Quadrivalent PSKT or Vial (Fluzone) [[id number]] Plan: -Continue contact with ENT. -Flu shot [...] She went to the E R in [place] while visiting her boyfriend for the recurrent symptoms. The ER gave her clinda mycin, which she reports had helped. She was swabbed for strep throat both instances, and pamela th cultures were negative. She currently reports still swollen tonsils, but she is in contac t with the ENT in [place]. She reports some trouble sleeping, but notes that it may be due to stress. 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 She is from [place]. Current Outpatient Medications Medication Sig Dispense Refill [...] file Gets together: Not on file Attends mu-ism service: Not on file Active member of [...] normal. This documentation prepared by Abigail Patterson medical detail representative. All aspects of this chart review ed [...]
--- OUTSIDE RECORDS SUMMARY | ~2019-11-05 | XMS | Encounter Summary ---
Demographics + + + | Address | [facility] | | | [address] | | | [place] [address] | + + + | Home Phone | | + + + | Preferred Language | Unknown | + + + | Marital Status | Single | + + + | Voodoo Affiliation | Unknown | + + + | Race | Unknown | + + + | Ethnic Group | Unknown | + + + Author + + + | Author | [facility] | | | and [place] | + + + | Organization | [facility] | | [...] Team Providers + +------+ + | Care Mat Maker Name | Role | Phone | + [...] Exudative | | 2019 | Visit | [facility] | DIRECTOR MORTGAGE-PAPER BUN[address] | pharyngitis (Primary | | | | [facility] [address] | [address] [place] | Dx); Sore throat; | | | | [address] [place], | [place] [address] | Fatigue, unspecified | | | | [place] [address] | [phone] | type | | | | [phone] | | | +--------+---------+ + + + [...] with pcp. Electronically signed by: BENOIT [email or web address] [facility], Walk-in [facility] Note: Part of this report was transcribed using voice recognition software. Every effort wa s made to ensure accuracy. However, inadvertent computerized lehr operator errors may be pre sent. documente d [...] + + | [facility] | [address] | [place] | [phone] | | HOSPITAL LABORATORY | | [address] | | + + + + + Mononucleosis Screen (04/18/2019 4:42 PM PDT) + + + + + + | Component | Value | Ref Range | Performed | Pathologist | | | | | At | Signature | + + + + + + | [place] Screen | Negative | Negative | [place] [...] + + | [facility] | [address] | [place] | [phone] | | HOSPITAL LABORATORY | | [address] | | + + + + + [...] + + | [facility] | [address] | [place], [place] | [phone] | | HOSPITAL LABORATORY | | [address] | | + + + + + [...]
--- OUTSIDE RECORDS SUMMARY | ~2019-11-05 | XMS | Encounter Summary ---
Demographics + + + | Address | [facility] | | | [address] | | | [place] [address] | + + + | Home Phone | | + + + | Preferred Language | Unknown | + + + | Marital Status | Single | + + + | Scientology Affiliation | Unknown | + + + [...] Team Providers + +------+ + | Care Greens Or Grounds Superintendent Name | Role | Phone | + [...] | [address] [place], [place] | [place] [address] | | | | | [address] | [phone] | | | | | [phone] | | | +--------+ + + + [...] sent through Care Everywhere.Pharyngitis, St rep (Presumed) (Citizen Of [place])documented in this encounter Medications at Time of [...] + + | [facility] | [address] | [place] | [phone] | | HOSPITAL LABORATORY | | [address] | | + + + + + Mononucleosis Screen (04/21/2019 9:03 AM PDT) + + + + + + | Component | Value | Ref Range | Performed | Pathologist | | | | | At | Signature | + + + + + + | [place] Screen | Negative | Negative | [place] [...] + + | [facility] | [address] | [place] | [phone] | | HOSPITAL LAB[facility]ATORY | | [address] | | + + + + + [...] | mL/min/1.73m2 | [facility] | | | [facility] | RATE,ESTIMATED | | HOSPITAL | | | | mL/min/1.26w8Wpbr than | | LABORATORY | | | [...] + + | [facility] | [address] | [place] | [phone] | | HOSPITAL LABORATORY | | [address] | | + + + + + [...] | 0.04 | 0.00 - 0.15 | [place] | | | Immature | | K/uL [...] + + | [facility] | [address] | [place] | [phone] | | HOSPITAL LABORATORY | | [address] | | + + + + + [...]
--- OUTSIDE RECORDS SUMMARY | ~2019-11-05 | XMS | Encounter Summary ---
Demographics + + + | Address | [facility] | | | [address] | | | [place] [address] | + + + | Home Phone | | + + + | Preferred Language | Unknown | + + + | Marital Status | Single | + + + | Mu-Ism Affiliation | Unknown | + + + | Race | Unknown | + + + | Ethnic Group | Unknown | + + + Author + + + | Author | [facility] | | | and [place] | + + + | Organization | [facility] | | | [...] Team Providers + +------+ + | Care Employment Counselor Name | Role | Phone | + +------+ + | No, Physician | PCP | Unavailable | + +------+ + Reason for Visit +---------+ + | Reason | Comments | +---------+ + | Results | | +---------+ + Encounter Details +--------+ + + + + | Date | Type | Department | Care Team | Description | +--------+ + + + + | 04/19/ | Telephone | [facility] [facility] | Sharon Rangel [place], | Results | | 2019 | | [facility] | DINKER-FELT COVERER [address] | | | | | [facility] [address] | [address] [place] | | | | | [address] [place], | [place] [address] | | | | | [place] [address] | [phone] | | | | | [phone] | | | +--------+ + + + [...]
--- OUTSIDE RECORDS SUMMARY | ~2019-11-05 | XMS | Encounter Summary ---
Demographics + + + | Address | [facility] | | | [address] | | | [place] [address] | + + + | Home Phone | | + + + | Preferred Language | Unknown | + + + | Marital Status | Single | + + + | Pentecostalism Affiliation | Unknown | + + + | Race | Unknown | + + + | Ethnic Group | Unknown | + + + Author + + + | Author | [facility] | | | and [place] | + + + | Organization | [facility] | | | [...] Team Providers + +------+ + | Care Metallurgical Laboratory Assistant Name | Role | Phone | + [...] | Results | | 2019 | | [facility] | ICT CUSTOMER SUPPORT OFFICER-METER AND SERVICE LINE INSPECTOR [address] | | | | | [facility] [address] | [address] [place] | | | | | [address] [place], | [place] [address] | | | | | [place] [address] | [phone] | | | | | [phone] | | | +--------+ + + + [...]
[~2019-11-05 12:39] MED LIST: HYDROCODONE-ACE15 M3 PO; IRON325 M1 PO; METFORMIN HCL500 MG PO
[2019-11-05] MEDS ORDERED: HYDROCODONE-AC118 M1 PO (13:14)
== END 2019-11-05 13:20 | disposition home or self-care (01) ==
LOC: ED 12:39
DX: G89.18 Other acute postprocedural pain (principal); R07.0 Pain in throat; Z79.899 Other long term (current) drug therapy
CPT/HCPCS: 99283